=== PATIENT | male | born 1980 | race Caucasian/White ===

== ENCOUNTER 2017-01-08 14:58 | Emergency (ER) | payer MEDICAID, OTHER ==
[~2017-01-08] VITALS: Ht 172.7 cm; Wt 77.1 kg
--- NOTE | 2017-01-08 16:31 | NUR ---
PT WAS EVALUATED BY DR LEMONS. PT WAS D/C TO HOME. D/C INSTRUCTIONS GIVEN TO THE PT. GAIT IS STABLE. NO S/S OF ACUTE DISTRESS AT THIS TIME.
[2017-01-08 16:32] VITALS: BP 128/81
== END 2017-01-08 16:33 | disposition home or self-care (01) ==
LOC: ER 15:02
DX: T40.1X1A Poisoning by heroin, accidental (unintentional), initial encounter (principal); Y92.89 Other specified places as the place of occurrence of the external cause
CPT/HCPCS: 99283; A4663